=== PATIENT | female | born 1995 | race Two or more races ===

== ENCOUNTER → 2016-08-09 | Outpatient (CLI) | payer MEDICAID | LOC: FIMAGING 13:52 | PROVIDERS: ATTEND Registered Nurse | DX: R10.2 Pelvic and perineal pain (principal) ==

== ENCOUNTER → 2018-01-27 | Outpatient (CLI) | payer MEDICAID | LOC: FIMAGING 14:23 | PROVIDERS: ATTEND Physician Assistant | DX: Z34.92 Encounter for supervision of normal pregnancy, unspecified, second trimester (principal); Z3A.20 20 weeks gestation of pregnancy ==

== ENCOUNTER → 2018-05-04 | Outpatient (CLI) | payer MEDICAID | LOC: FIMAGING 13:48 | PROVIDERS: ATTEND Physician Assistant | DX: O26.843 Uterine size-date discrepancy, third trimester (principal); Z3A.34 34 weeks gestation of pregnancy ==

== ENCOUNTER → 2018-05-08 | Outpatient (CLI) | payer MEDICAID | LOC: FIMAGING 13:14 | PROVIDERS: ATTEND Physician Assistant | DX: O36.5930 Maternal care for other known or suspected poor fetal growth, third trimester, not applicable or unspecified (principal); R05 Cough; R93.89 Abnormal findings on diagnostic imaging of other specified body structures; Z3A.34 34 weeks gestation of pregnancy; Z87.891 Personal history of nicotine dependence ==

== ENCOUNTER → 2018-05-22 | Outpatient (CLI) | payer MEDICAID | LOC: FIMAGING 14:32 | PROVIDERS: ATTEND Physician Assistant | DX: O36.5930 Maternal care for other known or suspected poor fetal growth, third trimester, not applicable or unspecified (principal); Z3A.36 36 weeks gestation of pregnancy ==